=== PATIENT | male | born 1985 | race Caucasian/White ===

== ENCOUNTER 2016-09-10 08:19 | Emergency (ER) | payer OTHER ==
[~2016-09-10] VITALS: Ht 167.6 cm; Wt 71.1 kg
[~2016-09-10 08:19] MED LIST: LOTENSIN10 MG PO; PERCOCET 5-3251 EACH PO; RISPERDAL2 MG PO; XANAX0.5 MG PO; ZOLOFT100 MG PO
[2016-09-10 08:24] VITALS: BP 138/81
[2016-09-10] MEDS ORDERED: NAPROSYN500 MG PO (09:18)
== END 2016-09-10 10:04 | disposition home or self-care (01) ==
LOC: EME 08:19
DX: S60.221A Contusion of right hand, initial encounter (principal); S60.414A Abrasion of right ring finger, initial encounter; S60.416A Abrasion of right little finger, initial encounter; W01.0XXA Fall on same level from slipping, tripping and stumbling without subsequent striking against object, initial encounter; Y93.01 Activity, walking, marching and hiking; F17.200 Nicotine dependence, unspecified, uncomplicated
CPT/HCPCS: 73130; 99281; 99284